=== PATIENT | male | born 1990 | race Caucasian/White ===

== ENCOUNTER 2019-08-17 06:54 | Emergency (ER) | payer OTHER | END 2019-08-17 07:54 | disposition other institution (70) | LOC: ED 06:54 | DX: Z02.89 Encounter for other administrative examinations (principal) ==

== ENCOUNTER 2019-08-17 06:54 | Emergency (ER) | payer MEDICAID ==
[~2019-08-17] VITALS: Ht 167.6 cm; Wt 86.2 kg
[2019-08-17 06:59] VITALS: BP 160/91; Ht 167.6 cm; Wt 86.2 kg
== END 2019-08-17 07:54 | disposition other institution (70) ==
LOC: ED 06:54
DX: S43.401A Unspecified sprain of right shoulder joint, initial encounter (principal); M79.662 Pain in left lower leg; W22.8XXA Striking against or struck by other objects, initial encounter; Y93.89 Activity, other specified; Y92.89 Other specified places as the place of occurrence of the external cause; Y99.8 Other external cause status